=== PATIENT | female | born 1980 | race African-American/Black ===

== ENCOUNTER 2016-10-03 01:04 | Emergency (ER) | payer SELFPAY ==
--- NOTE | 2016-10-03 01:55 | ER Document Report ---
ED General - General Chief Complaint: Abscess Stated Complaint: ABSCESS Notes: Patient is a 36-year-old female with past medical history of a recurrent left facial abscess who presents with concerns of the same. States over the last 24 hours she has developed a abscess on the left central skin overlying the mandible. Does describe this area is a dull, constant, throbbing pain. Touching the area worsens the pain. Nothing improves the pain. She has a history of the same in the past. She has not seen her primary doctor regarding today's concerns. He denies any constitutional symptoms or fever. TRAVEL OUTSIDE OF THE [place] IN LAST 30 DAYS: No - Related Data Allergies/Adverse Reactions: Penicillins Allergy (Verified 10/03/16 01:08) throat swells Past Medical History - General Information source: Patient - Social History Smoking Status: Never Smoker Frequency of alcohol use: None Drug Abuse: None Lives with: Spouse/Significant other Family History: Reviewed & Not Pertinent Renal/ Medical History: Denies: Hx Peritoneal Dialysis Past Surgical History: Reports: Hx Abdominal Surgery, Hx Section - Immunizations Hx Diphtheria, Pertussis, Tetanus Vaccination: Yes Review of Systems - Review of Systems Notes: Constitutional: Negative for fever. HENT: Negative for sore throat. Eyes: Negative for visual changes. Cardiovascular: Negative for chest pain. Respiratory: Negative for shortness of breath. Gastrointestinal: Negative for abdominal pain, vomiting or diarrhea. Genitourinary: Negative for dysuria. Musculoskeletal: Negative for back pain. Skin: Positive for abscess Neurological: Negative for headaches, weakness or numbness. 10 point ROS negative except as marked above and in HPI. Physical Exam - Vital signs Vitals: Temp Pulse Resp BP Pulse Ox 98.3 F 69 17 132/83 H 98 10/03/16 01:08 10/03/16 01:08 10/03/16 01:08 10/03/16 01:08 10/03/16 01:08 Interpretation: Normal Notes: PHYSICAL EXAMINATION: GENERAL: Well-appearing, well-nourished and in no acute distress. HEAD: Atraumatic, normocephalic. EYES: Pupils equal round and reactive to light, extraocular movements intact, sclera anicteric, conjunctiva are normal. ENT: nares patent, oropharynx clear without exudates. Moist mucous membranes. NECK: Normal range of motion, supple without lymphadenopathy LUNGS: Breath sounds clear to auscultation bilaterally and equal. No wheezes rales or rhonchi. HEART: Regular rate and rhythm without murmurs ABDOMEN: Soft, nontender, normoactive bowel sounds. No guarding, no rebound. No masses appreciated. EXTREMITIES: Normal range of motion, no pitting or edema. No cyanosis. NEUROLOGICAL: No focal neurological deficits. Moves all extremities spontaneously and on command. PSYCH: Normal mood, normal affect. SKIN: Warm, Dry, normal turgor, there is a 1 x 1 cm abscess on the left central skin overlying the mandible Course - Re-evaluation Re-evalutation: 10/03/16 01:53 Patient presents with a left mandible line abscess that is poorly cutaneous. She is otherwise well in appearance. She has no oropharyngeal swelling or edema. No stridor. No evidence of Zia's angina, retropharyngeal abscess or peritonsillar abscess on exam. Vitals within normal limits. This abscess was incised and drained at the bedside without difficulty. She was started on Bactrim for 5 days. At this time will discharge with return precautions and follow-up recommendations. Verbal discharge instructions given a the bedside and opportunity for questions given. Medication warnings reviewed. Patient is in agreement with this plan and has verbalized understanding of return precautions and the need for primary care follow-up in the next 24-72 hours. - Vital Signs Vital signs: Temp Pulse Resp BP Pulse Ox 98.3 F 69 17 132/83 H 98 10/03/16 01:08 10/03/16 01:08 10/03/16 01:08 10/03/16 01:08 10/03/16 01:08 Procedures - Incision and Drainage Left Face Time completed: 01:55 Type: Simple Anesthetic type: 1% Lidocaine mL's of anesthetic: 2 Blade size: 11 I&D procedure: Betadine prep applied Incision Method: Incision made by scalpel Amount/type of drainage: 3 mL of purulent drainage Discharge - Discharge Clinical Impression: Facial abscess Condition: Good Disposition: HOME, SELF-CARE Additional Instructions: You were seen for an abscess that required drainage. Please clean this area with soap and water twice daily and apply a topical antibiotic. Dress the area after each cleaning. Please return if you develop fever, vomiting, the pain at the site worsens, you notice spreading redness from the area, or you have any other symptoms that are concerning to you. Prescriptions: Sulfamethoxazole/Trimethoprim [Bactrim Ds Tablet] 2 tab PO BID #20 tablet
[2016-10-03 02:13] VITALS: BP 132/75
== END 2016-10-03 02:09 | disposition home or self-care (01) ==
LOC: ER 01:04
PROC: 0H91XZZ Drainage of Face Skin, External Approach (ICD-10-PCS; principal; 2016-10-03)
DX: L02.01 Cutaneous abscess of face (principal)
CPT/HCPCS: 99283

== ENCOUNTER 2018-09-24 17:00 | Emergency (ER) | payer SELFPAY ==
[2018-09-24 17:36] LABS: APPEARANCE,URINE CLOUDY; BILIRUBIN,URINE NEGATIVE (NEGATIVE); COLOR,URINE YELLOW; GLUCOSE, URINE NEGATIVE (NEGATIVE); KETONES,URINE 20 mg/dL (NEGATIVE); LEUKOCYTE ESTERASE,URINE TRACE (NEGATIVE); NITRITE,URINE POSITIVE (NEGATIVE); PROTEIN,URINE 100 mg/dL (NEGATIVE); URINE SPECIFIC GRAVITY 1.025
[2018-09-24] MEDS ORDERED: ONDANSETRON 4 MG TAB.RAPDIS PO ONE (18:27)
[2018-09-24] MEDS ORDERED: OXYCODONE-ACETAMINOPHEN 5-325 MG TABLET PO ONE (18:27)
--- NOTE | 2018-09-24 18:29 | ER Document Report ---
ED Medical Screen (RME) - General Chief Complaint: Abdominal Pain Stated Complaint: LOWER BACK PAIN/ABDOMINAL PAIN Time Seen by Provider: 09/24/18 18:22 Mode of Arrival: Ambulatory Information source: Patient Notes: Patient presents to the emergency department with complaints of bilateral low back pain. That started a few days ago. She also reports lower abdominal pain that started yesterday. Patient is tearful bilateral flank pain very tender to touch. Denies fever vomiting diarrhea but reports some nausea. Denies history of UTIs. Denies vaginal discharge. I have greeted and performed a rapid initial assessment of this patient. A comprehensive ED assessment and evaluation of the patient, analysis of test results and completion of the medical decision making process will be conducted by additional ED providers. Dictation of this chart was performed using voice recognition software; therefore, there may be some unintended grammatical errors. TRAVEL OUTSIDE OF THE [place] IN LAST 30 DAYS: No - Related Data Allergies/Adverse Reactions: Penicillins Allergy (Verified 10/03/16 01:08) throat swells Past Medical History - Social History Chew tobacco use (# tins/day): No Frequency of alcohol use: Occasional Drug Abuse: None Renal/ Medical History: Denies: Hx Peritoneal Dialysis Past Surgical History: Reports: Hx Abdominal Surgery, Hx Section - Immunizations Hx Diphtheria, Pertussis, Tetanus Vaccination: Yes Physical Exam - Vital signs Vitals: Temp Pulse Resp BP Pulse Ox 99.1 F 84 18 157/85 H 95 09/24/18 17:24 09/24/18 17:24 09/24/18 17:24 09/24/18 17:24 09/24/18 17:24 Course - Vital Signs Vital signs: Temp Pulse Resp BP Pulse Ox 99.1 F 84 18 157/85 H 95 09/24/18 17:24 09/24/18 17:24 09/24/18 17:24 09/24/18 17:24 09/24/18 17:24 - Laboratory Laboratory results interpreted by mi: 09/24/18 17:06 Urine Protein 100 H Urine Ketones 20 H Urine Blood LARGE H Urine Nitrite POSITIVE H Urine Urobilinogen 2.0 H Ur Leukocyte Esterase TRACE H
[2018-09-24 19:09] LABS: ABSOLUTE BASOPHILS # (AUTO) 0.1 10^3/uL (0.0-0.2); ABSOLUTE EOSINOPHILS # (AUTO) 0.1 10^3/uL (0.0-0.6); ABSOLUTE LYMPHOCYTES (AUTO) 1.9 10^3/uL (0.5-4.7); ABSOLUTE MONOCYTES (AUTO) 0.5 10^3/uL (0.1-1.4); ABSOLUTE NEUT (AUTO) 7.8 10^3/uL (1.7-8.2); EOSINOPHILS % (AUTO) 0.5 % (0-6); HEMATOCRIT 41.6 % (36.0-47.0); HEMOGLOBIN 14.3 g/dL (12.0-15.5); MEAN CORPUSCULAR HEMOGLOBIN 30.1 pg (27.0-33.4); MEAN CORPUSCULAR HGB CONC 34.4 g/dL (32.0-36.0); MEAN CORPUSCULAR VOLUME 88 fl (80-97); MONOCYTES % (AUTO) 5.2 % (3-13); PLATELET COUNT 427 10^3/uL (150-450); RED BLOOD COUNT 4.74 10^6/uL (3.72-5.28); RED CELL DISTRIBUTION WIDTH 15.9 % (11.5-14.0); SEGMENTED NEUTROPHILS % (AUTO) 75.3 % (42-78); TOTAL CELLS COUNTED % (AUTO) 100 %; WHITE BLOOD COUNT 10.4 10^3/uL (4.0-10.5)
[2018-09-24 19:21] LABS: ALANINE AMINOTRANSFERASE 39 U/L (9-52); ALBUMIN 4.5 g/dL (3.5-5.0); ALKALINE PHOSPHATASE 115 U/L (38-126); ANION GAP 11 (5-19); ASPARTATE AMINO TRANSFERASE 34 U/L (14-36); BILIRUBIN,DIRECT 0.3 mg/dL (0.0-0.4); BILIRUBIN,TOTAL 0.7 mg/dL (0.2-1.3); BLOOD UREA NITROGEN 10 mg/dL (7-20); CALCIUM 9.5 mg/dL (8.4-10.2); CARBON DIOXIDE 24 mmol/L (22-30); CHLORIDE 105 mmol/L (98-107); GLUCOSE 89 mg/dL (75-110); POTASSIUM 4.2 mmol/L (3.6-5.0); SODIUM 139.9 mmol/L (137-145); TOTAL PROTEIN 7.5 g/dL (6.3-8.2)
[2018-09-24] MEDS ORDERED: KETOROLAC TROMETHAMINE 60 MG/2 ML SDV IM ONE (22:11)
[2018-09-24] MEDS ORDERED: CEPHALEXIN 500 MG CAPSULE PO ONE (22:12)
[2018-09-24] MEDS ORDERED: PHENAZOPYRIDINE HCL 200 MG TABLET PO ONE (22:12)
[2018-09-24] MEDS ORDERED: PHENAZOPYRIDINE HCL 200 MG TABLET ONE (22:44)
--- NOTE | 2018-09-24 23:09 | ER Document Report ---
Addendum entered and electronically signed by TETE TILLMAN PA-C 09/24/18 23:20: Discharge - Discharge Clinical Impression: Facial abscess Urinary tract infection Qualifiers: Urinary tract infection type: site unspecified Hematuria presence: with hematuria Qualified Code(s): N39.0 - Urinary tract infection, site not specified Condition: Good Disposition: HOME, SELF-CARE Instructions: Abdominal Pain ([facility]), Antispasmodics ([facility]), Cephalexin ([facility]), Urinary Anesthetic Agent ([facility]), Urinary Tract Infection ([facility]) Additional Instructions: As we discussed home and medication as prescribed. Over the weekend should you have any concerns or problems return to the ER for recheck. Highly suggest that you contact your primary care provider for follow-up in the near future for possible referral to specialist. Prescriptions: Cephalexin Monohydrate [Keflex 500 mg Capsule] 500 mg PO BID 7 Days #14 capsule Cyclobenzaprine HCl [Flexeril 10 mg Tablet] 10 mg PO TID #21 tablet Hyoscyamine Sulfate [Levsin 0.125 Tablet] 0.125 mg PO ASDIR PRN #30 tablet PRN Reason: Phenazopyridine HCl [Pyridium 200 mg Tablet] 200 mg PO TID #15 tablet Forms: Elevated Blood Pressure, Smoking Cessation Education Original Note: ED General - General Chief Complaint: Abdominal Pain Stated Complaint: LOWER BACK PAIN/ABDOMINAL PAIN Time Seen by Provider: 09/24/18 18:22 Mode of Arrival: Ambulatory Information source: Patient, Emergency Med Personnel, [facility] Records TRAVEL OUTSIDE OF THE [place] IN LAST 30 DAYS: No - HPI Onset: Other - 7 days Onset/Duration: Gradual, Persistent, Worse Quality of pain: Achy, Burning, Cramping, Fullness, Pressure, Sharp, Stabbing, Throbbing Severity: Moderate Pain Level: 3 Associated symptoms: Body/muscle aches, Productive cough, Diarrhea, Drooling, Fever, Nausea, Vomiting, Rhinnorhea, Sinus pain/drainage Exacerbated by: Denies Relieved by: Denies Similar symptoms previously: Yes Recently seen / treated by doctor: No - Related Data Allergies/Adverse Reactions: bee venom protein (honey bee) Allergy (Verified 09/24/18 18:30) Penicillins Allergy (Verified 09/24/18 18:30) throat swells Past Medical History - General Information source: Patient - Social History Smoking Status: Current Every Day Smoker Chew tobacco use (# tins/day): No Frequency of alcohol use: Occasional Drug Abuse: None Family History: Reviewed & Not Pertinent Patient has suicidal ideation: No Patient has homicidal ideation: No Renal/ Medical History: Denies: Hx Peritoneal Dialysis Past Surgical History: Reports: Hx Abdominal Surgery, Hx Section - Immunizations Hx Diphtheria, Pertussis, Tetanus Vaccination: Yes Review of Systems - Review of Systems Constitutional: See HPI, Weakness EENT: No symptoms reported Cardiovascular: No symptoms reported Respiratory: No symptoms reported Gastrointestinal: See HPI, Abdominal pain, Nausea, Vomiting, Poor appetite Genitourinary: See HPI, Burning, Dysuria, Incontinence Female Genitourinary: No symptoms reported Musculoskeletal: No symptoms reported Skin: No symptoms reported Hematologic/Lymphatic: No symptoms reported Neurological/Psychological: No symptoms reported -: Yes All other systems reviewed and negative Physical Exam - Vital signs Vitals: Temp Pulse Resp BP Pulse Ox 99.1 F 84 18 157/85 H 95 09/24/18 17:24 09/24/18 17:24 09/24/18 17:24 09/24/18 17:24 09/24/18 17:24 Interpretation: Hypertensive - Notes Notes: PHYSICAL EXAMINATION: GENERAL: Well-appearing, well-nourished and in no acute distress. Uncomfortable appearing teary HEAD: Atraumatic, normocephalic. EYES: Pupils equal round and reactive to light, extraocular movements intact, conjunctiva are normal. ENT: Nares patent, oropharynx clear without exudates. Moist mucous membranes. NECK: Normal range of motion, supple without lymphadenopathy LUNGS: Breath sounds clear to auscultation bilaterally and equal. No wheezes rales or rhonchi. HEART: Regular rate and rhythm without murmurs ABDOMEN: examination patient's abdomen shows good bowel sounds all 4 quads she is mildly tender in all quads nothing specific. But has moderate amount of lower back tenderness. Patient is super hyper sensitive to touch on her low back area. Which does not make much sense when there is no rash and it extends across the entire low back not one-sided only. Female : deferred\patient refused pelvic exam. Musculoskeletal: Normal range of motion, no pitting or edema. No cyanosis. NEUROLOGICAL: Normal speech, normal gait. Normal sensory, motor exams PSYCH: Normal mood, normal affect. SKIN: Warm, Dry, normal turgor, no rashes or lesions noted. Course - Re-evaluation Re-evalutation: 09/24/18 23:09 Patient and I had a long talk because her presentation does not really meet any criteria. She is super sensitive to touch on the lower back area all the way from one hip to the other. Which is without a rash being there and only being one sided does not lend itself for shingles. She has some mild pain to percussion on the upper portion of the back areas. But again nothing specific. She denies any major fevers but has had no abdominal pain to speak of with the exception of some suprapubic tenderness denies any vaginal discharge has been with the same carl for greater than 4 years. 09/24/18 23:10 Patient agreed that could be that she started with this on Saturday has progres sively gotten worse and her body is come to the point where he has had an off and is just wanting to give out on her. We will treat with antibiotics and fluids and we will have her follow-up within 48 hours. - Vital Signs Vital signs: Temp Pulse Resp BP Pulse Ox 99.1 F 84 18 157/85 H 95 09/24/18 17:24 09/24/18 17:24 09/24/18 17:24 09/24/18 17:24 09/24/18 17:24 - Laboratory Result Diagrams: 09/24/18 18:47 09/24/18 18:47 Laboratory results interpreted by me: 09/24/18 09/24/18 17:06 18:47 RDW 15.9 H Urine Protein 100 H Urine Ketones 20 H Urine Blood LARGE H Urine Nitrite POSITIVE H Urine Urobilinogen 2.0 H Ur Leukocyte Esterase TRACE H Discharge - Discharge Clinical Impression: Facial abscess Urinary tract infection Qualifiers: Urinary tract infection type: site unspecified Hematuria presence: with hematuria Qualified Code(s): N39.0 - Urinary tract infection, site not specified Condition: Good Disposition: HOME, SELF-CARE Instructions: Abdominal Pain ([facility]), Antispasmodics ([facility]), Cephalexin ([facility]), Urinary Anesthetic Agent ([facility]), Urinary Tract Infection ([facility]) Additional Instructions: As we discussed home and medication as prescribed. Over the weekend should you have any concerns or problems return to the ER for recheck. Highly suggest that you contact your primary care provider for follow-up in the near future for possible referral to specialist. Prescriptions: Cephalexin Monohydrate [Keflex 500 mg Capsule] 500 mg PO BID 7 Days #14 capsule Cyclobenzaprine HCl [Flexeril 10 mg Tablet] 10 mg PO TID #21 tablet Hyoscyamine Sulfate [Levsin 0.125 Tablet] 0.125 mg PO ASDIR PRN #30 tablet PRN Reason: Phenazopyridine HCl [Pyridium 200 mg Tablet] 200 mg PO TID #15 tablet Forms: Elevated Blood Pressure, Smoking Cessation Education
[2018-09-24] MEDS ORDERED: HYDROCODONE/ACETAMINOPHEN 5-325 MG (6 TAB/ER DISP) PO PRN (23:35)
[2018-09-24 23:54] VITALS: BP 132/70
== END 2018-09-24 23:55 | disposition home or self-care (01) ==
LOC: ER 17:00
DX: N39.0 Urinary tract infection, site not specified (principal); R31.9 Hematuria, unspecified; R30.0 Dysuria; M54.5 Low back pain; R10.9 Unspecified abdominal pain; L02.01 Cutaneous abscess of face; R05 Cough; R19.7 Diarrhea, unspecified; R63.0 Anorexia; R32 Unspecified urinary incontinence; R11.2 Nausea with vomiting, unspecified; R50.9 Fever, unspecified; J34.89 Other specified disorders of nose and nasal sinuses; F17.200 Nicotine dependence, unspecified, uncomplicated; Z91.030 Bee allergy status; Z88.0 Allergy status to penicillin
CPT/HCPCS: 99284; 96372; 36415; 84703; 85025; 81025; 80053; 81001; J1885; S0119; J3490